=== PATIENT | female | born 1980 | race Caucasian/White ===

== ENCOUNTER 2017-11-22 11:53 | Inpatient (IN) | payer BC ==
[2017-11-22] MEDS ORDERED: OXYTOCIN/RINGERS LACTATE 1,000 ML IV PRN (12:41)
[2017-11-22] MEDS ORDERED: IBUPROFEN 600 MG TAB PO PRN (12:41)
[2017-11-22] MEDS ORDERED: LIDOCAINE 1% 300 MG/30 ML SDV SC PRN (12:41)
[2017-11-22] MEDS ORDERED: EPSOM SALT 454 GM TP PRN (12:41)
[2017-11-22] MEDS ORDERED: OLIVE OIL 118 ML BTL MISC PRN (12:41)
[2017-11-22] MEDS ORDERED: LR 1,000 ML IV PRN (12:41)
[2017-11-22] MEDS ORDERED: TERBUTALINE SULFATE 1 MG/ML VIAL IV PRN (12:41)
[2017-11-22] MEDS ORDERED: MISOPROSTOL 200 MCG TAB PR PRN (12:41)
--- NOTE | 2017-11-22 12:53 | PDGENHP ---
History and Physical History and Physical: CARE: [facility] HPI: Patient is a 36 yo G 3 P 1 that presents to L&D with complaints of regular contractions since 5 am this morning. They became more painful at 8 am this morning. She was seen in the office this morning and was 4/80/-3 (was 1 cm last week) so was sent to labor and delivery for admission for labor. She denies leaking fluid or vaginal bleeding. Baby is active. She is breathing well with contractions. She plans on an epidural for pain relief. EDC: 11/19/17 which is based on LMP: 02/11/17 which is known and consistent with Ultrasound at 7 weeks. Her is complicated by: 1. AMA 2. 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 No current outbreak - last outbreak was >2 years ago 3. Anemia - hct 34 at 34 weeks. Taking daily ferrous sulfate Review of Systems: Constitutional: Denies any fever, chills, or fatigue HEENT: denies any visual changes, difficulty swallowing, hearing loss Cardiovascular: Denies any chest pain, palpitations, leg swelling Respiratory: denies any cough, wheezing, or shortness of breathe GI: Denies any nausea, vomiting, diarrhea, constipation : denies any dysuria, urgency, frequency, vaginal bleeding Musculoskeletal: denies any muscle or bone pain Skin: denies any rashes Neuro: denies any headache, seizures, lightheadedness, dizziness, or loss of consciousness Psychiatric: denies any depression, anxiety, or SI/HI thoughts HISTORY: Previous OB history: SAB and 2016 Past medical history: h/o hsv 2, last outbreak >2 years ago - prophylactic tx with Valtrex since 36 weeks, h/o chronic hip pain Past surgical history: Left hip surgery 2004, 2010 Medications: PNV, iron Allergies (list reaction): NKDA LABS: Rh: O pos ABS: Neg Rubella: Immune HbsAg: NR HIV: NR VDRL: NR 1hr: 105 GC: Neg Chlamydia: Neg Pap: Normal GBS: neg Innatal - wnl PHYSICAL EXAM: Constitutional: WN, A&Ox3 HEENT: normocephalic atraumatic, supple Heart: RRR, no murmur Chest: CTA-B Abdomen: Soft, nontender, gravid SVE: 4/80/-3 Extremities: tr edema, negative mamadou's sign Neuro: grossly normal Psych: normal affect assessment: Reassuring FHTs, baseline 130s +accels, no decels, moderate variability Contractions: toco q 3-4 mild/mod Assessment: 1) 37 yo G 3 P 1 with IUP@ 40.3 weeks ega 2) spontaneous labor 3) GBS neg 4) Cat 1 FHR tracing Plan: 1) Admit to L&D 2) Intermittent monitoring pre protocol after reactive NST 3) Diet as tolerated 4) Epidural when patient desires 5) Anticipate
[2017-11-22 14:04] LABS: PLATELET COUNT 239 10^3/uL (150-400)
[2017-11-22] MEDS ORDERED: BUPIVACAINE 0.25% 30 ML SDV ONE (15:46)
[2017-11-22] MEDS ORDERED: fentaNYL 100 MCG/2 ML INJ ONE (15:47)
[2017-11-22] MEDS ORDERED: PHENYLEPHRINE HCL 100 MCG/ML SYR ONE (15:52)
[2017-11-22] MEDS ORDERED: fentaNYL 200 MCG, BUPIVACAINE 0.5% 20 ML in NS 100 ML EP SCH (16:30)
--- NOTE | 2017-11-22 16:38 | OBPROG ---
Labor Progress Note Assessment/Plan: Assessment: 36 y/o at 40.3 weeks ega - spontaneous labor SVE 5/80/-3 Cat 1 EFM Desires epidural Plan: Anesthesia notified Will AROM when able Anticipate 11/22/17 17:23 Subjective/Intrapartum Course: 11/22/17 17:25 Patient doing well breathing with contractions but getting more uncomfortable and desires epidural Objective: 11/22/17 13:55 Patient ABO/Rh O POSITIVE 11/22/17 13:55 Cat 1 EFM SVE 5/80/-3 Cont q 3-4 minutes, mod to palpation VSS - Physical Exam General Appearance: WD/WN, alert Skin: normal color, warm/dry Neuro/Psych: no motor/sensory deficits, alert, normal mood/affect, oriented x 3 CNM Assessment - Uterine Assessment Contraction Strength: Moderate Uterine Resting Tone: Palpates Soft Contraction Frequency (minutes): 3-4 Contraction Duration (sec): 60 - Intermittent Auscultation Auscultation Method Used: Ultrasound Heart Rate Auscultated (bpm): 135 FHR Acceleration(s) Auscultated: Yes FHR Deceleration(s) Auscultated: No Oxytocin Orders Assessment - Pre-Induction/Augmentation Assessment Gestational Age: 40 week(s) and 3 day(s) ICD10 Worksheet Patient Problems: Problems Problem Status Onset Advanced maternal age in multigravida Acute - ICD10 Problem Qualifiers (1) Advanced maternal age in multigravida Qualifiers: Trimester: third trimester Qualified Code(s): O09.523 - Supervision of elderly multigravida, third trimester
[2017-11-22] MEDS ORDERED: ONDANSETRON 4 MG/2 ML VIAL IVP PRN (16:39)
[2017-11-22] MEDS ORDERED: NALOXONE HCL 0.4 MG/ML INJ IVP PRN (16:39)
[2017-11-22] MEDS ORDERED: PHENYLEPHRINE HCL 100 MCG/ML SYR IVP PRN (16:39)
--- NOTE | 2017-11-22 16:42 | PREANESOB ---
Obstetric Pre-Anesthesia Info - General Info : 3 Para: 1 FLOYD: 11/19/17 Gestational Age: 40 week(s) and 3 day(s) - Info Status: Full Term Monitors: External FHR Pattern: Reassuring - Labor Status Cervical Dilation per last OB SVE: 5 Indications for Labor Analgesia: Pain Control Labor Epidural: Yes Anesthesia Allergies/Adverse Reactions: Allergy/AdvReac Type Severity Reaction Status Date / Time No Known Allergies Allergy Unverified 11/28/15 10:09 Home Medications: Medication Instructions Recorded Acyclovir 11/28/15 CYCLOBENZAPRINE HCL [Flexeril] 10 mg PO TIDPRN PRN #20 tab 11/28/15 Hydrocodone/APAP 5/325 [[place] 1 - 2 tab PO Q4 PRN #20 tab 11/28/15 5/325] Prozac 10 MG (RX) 11/28/15 predniSONE 1 dose PO DAILY #18 tablet 11/28/15 Visit Medications: Generic Name Dose Route Start Last Admin Trade Name Freq PRN Reason Stop Dose Admin Lactated Ringer's 1,000 mls @ 0 mls/hr 11/22/17 12:41 Lr IV 11/23/17 12:40 PRN PRN SEE PROTOCOL CONDITIONS Protocol Per Protocol Oxytocin/Lactated Ringer's 1,000 mls @ 125 mls/hr 11/22/17 12:41 Pitocin 20 Units/Lr (Premix) IV PRN PRN Post bleeding Fentanyl 200 mcg/ Bupivacaine 100 mls @ 0 mls/hr 11/22/17 16:30 HCl 20 ml/ Sodium Chloride EP 12/02/17 16:29 CONT JANA Protocol As Directed Lactated Ringer's 500 mls @ 0 mls/hr 11/22/17 17:00 Lr IV 05/21/18 16:59 CONT JANA As Directed Ibuprofen 600 mg 11/22/17 12:41 Motrin PO ONCE PRN post , pain Lidocaine HCl 300 mg 11/22/17 12:41 Lidocaine Hcl 1% SC 05/21/18 12:40 ONCE PRN episiotomy Magnesium Sulfate 454 gm 11/22/17 12:41 Epsom Salt TP 05/21/18 12:40 Q1H PRN perineal discomfort Misoprostol 800 - 1,000 mcg 11/22/17 12:41 Cytotec UT ONCE PRN Vaginal Atony/Bleeding [place] Oil 118 ml 11/22/17 12:41 Sweet Oil MISC 05/21/18 12:40 ONCE PRN perineal massage Terbutaline Sulfate 0.25 mg 11/22/17 12:41 Brethine IV 05/21/18 12:40 ONCE PRN Tachysystole Discontinued Medications Generic Name Dose Route Start Last Admin Trade Name Freq PRN Reason Stop Dose Admin Bupivacaine HCl Confirm 11/22/17 15:46 Sensorcaine 0.25% Sdv Administered 11/22/17 15:47 Dose 30 ml .ROUTE .STK-MED ONE Fentanyl Confirm 11/22/17 15:47 Sublimaze Administered 11/22/17 15:48 Dose 100 mcg .ROUTE .STK-MED ONE Phenylephrine HCl Confirm 11/22/17 15:52 Neosynephrine Administered 11/22/17 15:53 Dose 1,000 mcg .ROUTE .STK-MED ONE - Vital Signs Height/Weight (Nursing): Height 177.8 cm Weight 85.729 kg Labs: 11/22/17 13:55 Patient ABO/Rh O POSITIVE 11/22/17 13:55
[2017-11-22] MEDS ORDERED: AMMONIA AROMATIC 1 EACH AMP IH ONE (16:47)
[2017-11-22] MEDS ORDERED: OLIVE OIL 118 ML BTL ONE (16:47)
[2017-11-22] MEDS ORDERED: TERBUTALINE SULFATE 1 MG/ML VIAL ONE (16:47)
[2017-11-22] MEDS ORDERED: OXYTOCIN 10 UNIT/ML VIAL ONE (16:47)
[2017-11-22] MEDS ORDERED: LIDOCAINE 1% 300 MG/30 ML SDV ONE (16:47)
[2017-11-22] MEDS ORDERED: MISOPROSTOL 200 MCG TAB ONE (16:48)
[2017-11-22] MEDS ORDERED: LR 500 ML IV SCH (17:00)
[2017-11-22] MEDS ORDERED: fentaNYL 2MCG/ML/BUP 0.1% RTU 100 ML EP SCH (17:00)
[2017-11-22] MEDS ORDERED: OXYTOCIN/RINGERS LACTATE 500 ML IV SCH (18:30)
--- NOTE | 2017-11-22 18:49 | OBPROG ---
Labor Progress Note Assessment/Plan: Assessment: Plan: Subjective/Intrapartum Course: 11/22/17 17:25 Patient doing well breathing with contractions but getting more uncomfortable and desires epidural 11/22/17 18:46 patient is comfortable with epidural. contractions have spaced out. SVE 5/80/- 3 with bulging bag of water head is engaged but high. discussed management options. Will start pitocin augmentation and AROM if needed once head is lower. will try multiple positions. status reassuring. Objective: 11/22/17 13:55 Patient ABO/Rh O POSITIVE 11/22/17 13:55 - SVE Dilation (cm): 5 Effacement (%): 80 Station: -3 Membranes: Intact - Contraction Pattern Assessment Current Contraction Pattern: Irregular Oxytocin Orders Assessment - Pre-Induction/Augmentation Assessment Gestational Age: 40 week(s) and 3 day(s) ICD10 Worksheet Patient Problems: Problems Problem Status Onset Advanced maternal age in multigravida Acute
[2017-11-22] MEDS ORDERED: ACETAMINOPHEN 500 MG TAB PO PRN (19:58)
--- NOTE | 2017-11-22 20:45 | OBPROG ---
Labor Progress Note Assessment/Plan: Assessment: Plan: Subjective/Intrapartum Course: 11/22/17 17:25 Patient doing well breathing with contractions but getting more uncomfortable and desires epidural 11/22/17 18:46 patient is comfortable with epidural. contractions have spaced out. SVE 5/80/- 3 with bulging bag of water head is engaged but high. discussed management options. Will start pitocin augmentation and AROM if needed once head is lower. will try multiple positions. status reassuring. 11/22/17 20:42 patient feeling more pressure in tailbone. sve head well engaged - bulging bag of water. ROM with exam - moderate amount of light meconium stained fluid. sve after ROM 5/80/-2. status reassuring. contractions q 3 minutes. Objective: 11/22/17 13:55 Patient ABO/Rh O POSITIVE 11/22/17 13:55 - SVE Membranes: Intact - Contraction Pattern Assessment Current Contraction Pattern: Regular, Irregular - FHR Assessment Angel FHR (bpm): 130 - Procedures Non-surgical Procedures: Amniotomy Oxytocin Orders Assessment - Pre-Induction/Augmentation Assessment Gestational Age: 40 week(s) and 3 day(s) ICD10 Worksheet Patient Problems: Problems Problem Status Onset Advanced maternal age in multigravida Acute
[2017-11-22] MEDS ORDERED: SILVER NITRATE APPLICATOR 1 APPL TP ONE (21:19)
--- NOTE | 2017-11-22 21:57 | OBDEL ---
Info Type: Vaginal L&D Analgesia/Anesthesia Type: Epidural GBS+: No Intrapartum Medications: Generic Name Dose Route Start Last Admin Trade Name Dimitriq PRN Reason Stop Dose Admin Acetaminophen 1,000 mg 11/22/17 19:58 11/22/17 20:11 Tylenol PO 05/21/18 19:57 1,000 mg Q6 PRN Administration Pain, Mild Able to Take PO Oxytocin/Lactated Ringer's 500 mls @ 0 mls/hr 11/22/17 18:30 11/22/17 19:23 Pitocin 30 Units/Lr (Premix) IV 05/21/18 18:29 500 mls CONT JANA Administration Titrate Lidocaine HCl 300 mg 11/22/17 12:41 11/22/17 21:15 Lidocaine Hcl 1% SC 05/21/18 12:40 300 mg ONCE PRN Administration episiotomy Ondansetron HCl 4 mg 11/22/17 16:39 11/22/17 18:59 Zofran IVP 11/23/17 16:38 4 mg Q4HRS PRN Administration Nausea/Vomiting, Can't Take PO - Hospital Course Intrapartum: 11/22/17 17:25 Patient doing well breathing with contractions but getting more uncomfortable and desires epidural 11/22/17 18:46 patient is comfortable with epidural. contractions have spaced out. SVE 5/80/- 3 with bulging bag of water head is engaged but high. discussed management options. Will start pitocin augmentation and AROM if needed once head is lower. will try multiple positions. status reassuring. 11/22/17 20:42 patient feeling more pressure in tailbone. sve head well engaged - bulging bag of water. ROM with exam - moderate amount of light meconium stained fluid. sve after ROM 5/80/-2. status reassuring. contractions q 3 minutes. Indications for Delivery: Spontaneous Labor Vaginal Delivery - Delivery Provider Delivery Physician/CNM: Rachel Roy - Labor and Delivery Onset of Contractions Date: 11/22/17 Onset of Contractions Time: 06:30 Onset of Contractions Type: Augmented Rupture of Membranes Date: 11/22/17 Rupture of Membranes Time: 20:31 Rupture of Membranes Type: Spontaneous Amniotic Fluid Color: Meconium Stained Dilation Complete Date: 11/22/17 Dilation Complete Time: 20:51 Placenta Delivery Date: 11/22/17 Placenta Delivery Time: 21:38 Total Hours of Labor: 15 Non-surgical Procedures: Amniotomy Laceration: 1st Degree Vaginal Sponge Count Correct: Yes Vaginal Needle Count Correct: Yes Vaginal Sweep Performed: Yes EBL: 400 Delivery Events: Retained Placenta, Other (Specify) (nuchal arm) - Medications Labor Augmentation/Induction Methods Used: Pitocin Labor Augmentation/Induction Indication: Inadequate Ctx Strength Data FLOYD: 11/19/17 Gestational Age: 41 week(s) and 2 day(s) Angel Delivery Date: 11/22/17 Delivery Time: 21:10 Sex of : Female Score (1 Min): 8 Score (5 Min): 9 ICD10 Worksheet Patient Problems: Problems Problem Status Onset Advanced maternal age in multigravida Acute Delivery normal Acute
[2017-11-22] MEDS ORDERED: SIMETHICONE 80 MG TAB CHEW PO PRN (22:03)
[2017-11-22] MEDS ORDERED: HYDROCORTISONE 0.5% CREAM TP PRN (22:03)
--- NOTE | 2017-11-22 22:09 | OBPROG ---
Labor Progress Note Assessment/Plan: Assessment: Plan: Subjective/Intrapartum Course: 11/22/17 17:25 Patient doing well breathing with contractions but getting more uncomfortable and desires epidural 11/22/17 18:46 patient is comfortable with epidural. contractions have spaced out. SVE 5/80/- 3 with bulging bag of water head is engaged but high. discussed management options. Will start pitocin augmentation and AROM if needed once head is lower. will try multiple positions. status reassuring. 11/22/17 20:42 patient feeling more pressure in tailbone. sve head well engaged - bulging bag of water. ROM with exam - moderate amount of light meconium stained fluid. sve after ROM 5/80/-2. status reassuring. contractions q 3 minutes. Objective: 11/22/17 13:55 Patient ABO/Rh O POSITIVE 11/22/17 13:55 - SVE Membranes: Intact Amniotic Fluid Color: Meconium Stained Dilation Complete Date: 11/22/17 Dilation Complete Time: 20:51 - Contraction Pattern Assessment Current Contraction Pattern: Regular, Irregular - Procedures Non-surgical Procedures: Amniotomy - AP Antepartum Course: 11/22/17 22:07 uncomplicated . 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 negative genetic testing. hx hsv2. started valtrex at 36 weeks. no lesions or prodromal symptoms noted. contractions began at 5 am and was 4 cm dilated at MOIS[facility] visit. Oxytocin Orders Assessment - Pre-Induction/Augmentation Assessment Gestational Age: 40 week(s) and 3 day(s) ICD10 Worksheet Patient Problems: Problems Problem Status Onset Delivery normal Acute Advanced maternal age in multigravida Acute
--- NOTE | 2017-11-23 10:42 | OBPP ---
Progress Note Assessment/Plan: Assessment: PPD 1 s/p Plan: routine care, mild anemia 11/23/17 10:40 Subjective/ Course: 11/23/17 10:41 Pt is doing well. Baby has easy latch - mod cramps but angelica with ibu. bld is moderate. urinating fine. Objective: 11/22/17 13:55 Patient ABO/Rh O POSITIVE 11/22/17 13:55 Temp Pulse Resp BP Pulse Ox 36.5 C 78 18 101/66 96 11/23/17 07:31 11/23/17 07:31 11/23/17 07:31 11/23/17 07:31 11/23/17 07:31 Uterine Position/Fundal Height: Umbilicus -1 Uterine Tone: Firm Physical Exam - Physical Exam Abdomen: non-tender, soft, other (FF at umb -1, normal lochia) Extremities: non-tender, pedal edema (mild) Skin: normal color, warm/dry Neuro/Psych: alert, normal mood/affect
[2017-11-23] MEDS: IBUPROFEN 600 MG TAB PO PRN ×3 (10:49→23:14)
[2017-11-23] MEDS: DOCUSATE SODIUM 100 MG CAP PO PRN ×2 (10:50→23:13)
[2017-11-23] MEDS: HYDROCODONE/APAP 5/325 TAB PO PRN ×4 (13:47→23:14)
--- NOTE | 2017-11-23 15:01 | OBPP ---
Progress Note Assessment/Plan: Assessment: PPD 1 s/p desires d/c using [facility] for cramps Plan: routine care, mild anemia 11/23/17 10:40 11/23/17 14:59 Subjective/ Course: 11/23/17 10:41 Pt is doing well. Baby has easy latch - mod cramps but angelica with ibu. bld is moderate. urinating fine. 11/23/17 15:01 uterine cramps have intensified with BF - requests [facility]. Feels she'll want d/ c later tonight. Objective: 11/22/17 13:55 Patient ABO/Rh O POSITIVE 11/22/17 13:55 Temp Pulse Resp BP Pulse Ox 36.5 C 78 18 101/66 96 11/23/17 07:31 11/23/17 07:31 11/23/17 07:31 11/23/17 07:31 11/23/17 07:31 Uterine Position/Fundal Height: Umbilicus -1 Uterine Tone: Firm
--- NOTE | 2017-11-23 15:12 | OBGCSDC ---
General Delivery Information - General Info : 3 Para: 2 Abortions: 1 Type: Vaginal L&D Analgesia/Anesthesia Type: Epidural, Local Admission Date: 11/22/17 Labs: Patient ABO/Rh O POSITIVE 11/22/17 13:55 Hct 35.8 % (38.0-47.0) L 11/22/17 13:55 - Hospital Course Antepartum: 11/22/17 22:07 uncomplicated . 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 negative genetic testing. hx hsv2. started valtrex at 36 weeks. no lesions or prodromal symptoms noted. contractions began at 5 am and was 4 cm dilated at MOIS[facility] visit. Intrapartum: 11/22/17 17:25 Patient doing well breathing with contractions but getting more uncomfortable and desires epidural 11/22/17 18:46 patient is comfortable with epidural. contractions have spaced out. SVE 5/80/- 3 with bulging bag of water head is engaged but high. discussed management options. Will start pitocin augmentation and AROM if needed once head is lower. will try multiple positions. status reassuring. 11/22/17 20:42 patient feeling more pressure in tailbone. sve head well engaged - bulging bag of water. ROM with exam - moderate amount of light meconium stained fluid. sve after ROM 5/80/-2. status reassuring. contractions q 3 minutes. : 11/23/17 10:41 Pt is doing well. Baby has easy latch - mod cramps but angelica with ibu. bld is moderate. urinating fine. 11/23/17 15:01 uterine cramps have intensified with BF - requests [place]. Feels she'll want d/ c later tonight. Vaginal - Delivery Provider Delivery Physician/CNM: Rachel Barnes - Diagnosis Labor: Augmented Rupture of Membranes Type: Spontaneous Amniotic Fluid Color: Meconium Stained Laceration: 1st Degree Delivery Events: Retained Placenta, Other (Specify) (nuchal arm) - Procedures Non-surgical Procedures: Amniotomy - Delivery Non-surgical Procedures: Amniotomy Data FLOYD: 11/19/17 Gestational Age: 40 week(s) and 4 day(s) Angel Delivery Date: 11/22/17 Delivery Time: 21:10 Sex of Infant: Female Weight (gm): 3582 g Score (1 Min): 8 Score (5 Min): 9 Discharge Information - Discharge Information Prescriptions: Hydrocodone/APAP 5/325 [[place] 5/325 (*)] 1 - 2 tab PO Q4HRS PRN #4 tab PRN Reason: Pain, Moderate Condition: Good Instruction/Follow Up: See Instruction Sheet, Four Weeks (3-4 wks with therapist ), Six Weeks (with Dr barnes)
[2017-11-24] MEDS: IBUPROFEN 600 MG TAB PO PRN (05:31)
[2017-11-24] MEDS: HYDROCODONE/APAP 5/325 TAB PO PRN ×2 (05:31→10:26)
--- NOTE | 2017-11-24 07:55 | OBGCSDC ---
General Delivery Information - General Info : 3 Para: 2 Abortions: 1 Type: Vaginal L&D Analgesia/Anesthesia Type: Epidural, Local Admission Date: 11/22/17 Labs: Patient ABO/Rh O POSITIVE 11/22/17 13:55 Hct 35.8 % (38.0-47.0) L 11/22/17 13:55 - Hospital Course Antepartum: 11/22/17 22:07 uncomplicated . 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 negative genetic testing. hx hsv2. started valtrex at 36 weeks. no lesions or prodromal symptoms noted. contractions began at 5 am and was 4 cm dilated at MO[facility] visit. Intrapartum: 11/22/17 17:25 Patient doing well breathing with contractions but getting more uncomfortable and desires epidural 11/22/17 18:46 patient is comfortable with epidural. contractions have spaced out. SVE 5/80/- 3 with bulging bag of water head is engaged but high. discussed management options. Will start pitocin augmentation and AROM if needed once head is lower. will try multiple positions. status reassuring. 11/22/17 20:42 patient feeling more pressure in tailbone. sve head well engaged - bulging bag of water. ROM with exam - moderate amount of light meconium stained fluid. sve after ROM 5/80/-2. status reassuring. contractions q 3 minutes. : 11/23/17 10:41 Pt is doing well. Baby has easy latch - mod cramps but angelica with ibu. bld is moderate. urinating fine. 11/23/17 15:01 uterine cramps have intensified with BF - requests [place]. Feels she'll want d/ c later tonight. 11/24/17 0845 S) Pt doing well, reports min pain and bleeding. she is ambulating and voiding without difficulty. She is . She desires discharge home today. O) VSS, afebrile constitutional: WNWF, A&Ox3 HEENT: normocephalic, atraumatic, supple Heart: RRR, No murmur Chest: CTA-B Abdomen: Soft, nontender Uterus: Firm at U-2 Lochia: Minimal rubra Perineum: Intact, healing well Extremities: Trace edema, and negative Hanh's sign Neuro: Grossly normal A) 37-year-old S/P PPD#2 P) Discharge home today Continue Pelvic rest x6wks Discussed danger signs (infection, preeclampsia, depression, heavy bleeding, etc ) RTO in 4/6 weeks Vaginal - Delivery Provider Delivery Physician/CNM: Rachel Barnes - Diagnosis Labor: Augmented Rupture of Membranes Type: Spontaneous Amniotic Fluid Color: Meconium Stained Laceration: 1st Degree Delivery Events: Retained Placenta, Other (Specify) (nuchal arm) - Procedures Non-surgical Procedures: Amniotomy - Delivery Non-surgical Procedures: Amniotomy Data FLOYD: 11/19/17 Gestational Age: 40 week(s) and 5 day(s) Angel Delivery Date: 11/22/17 Delivery Time: 21:10 Sex of : Female [place] Weight (gm): 3582 g Score (1 Min): 8 Score (5 Min): 9 Discharge Information - Discharge Information Prescriptions: Hydrocodone/APAP 5/325 [[place] 5/325 (*)] 1 - 2 tab PO Q4HRS PRN #4 tab PRN Reason: Pain, Moderate Condition: Good Instruction/Follow Up: See Instruction Sheet, Four Weeks (3-4 wks with therapist ), Six Weeks (with Dr barnes)
[2017-11-24 08:31] VITALS: BP 129/87
[2017-11-24] MEDS: DOCUSATE SODIUM 100 MG CAP PO PRN (08:41)
== END 2017-11-24 11:05 | disposition home or self-care (01) | DRG 774 ==
LOC: FLD 11:53 → FOB 23:59
PROVIDERS: ADMIT Advanced Practice Midwife; ATTEND Obstetrics & Gynecology
PROC: 0HQ9XZZ Repair Perineum Skin, External Approach (ICD-10-PCS; principal; 2017-11-22)
PROC: 10907ZC Drainage of Amniotic Fluid, Therapeutic from Products of Conception, Via Natural or Artificial Opening (ICD-10-PCS; principal; 2017-11-22)
PROC: 10E0XZZ Delivery of Products of Conception, External Approach (ICD-10-PCS; principal; 2017-11-22)
DX: O70.0 First degree perineal laceration during delivery (principal); O69.82X0 Labor and delivery complicated by other cord entanglement, without compression, not applicable or unspecified; O77.0 Labor and delivery complicated by meconium in amniotic fluid; O99.02 Anemia complicating childbirth; O98.513 Other viral diseases complicating pregnancy, third trimester; B00.9 Herpesviral infection, unspecified; Z3A.40 40 weeks gestation of pregnancy; Z37.0 Single live birth
CPT/HCPCS: J2370; J2405; J2590; J3010; J3105